=== PATIENT | female | born 1990 ===

== ENCOUNTER 2017-11-30 09:51 | Day surgery (SDC) | payer BC ==
[~2017-11-30 09:51] MED LIST: Buffered Lidocaine 0.9% SYRIN* 5 ML/SYR SYRINGE INTRADERM ONE; Dexamethasone TAB* 4 MG PO ONE; DiMENhydriNATE IV* 50 MG/ML VIAL IV PUSH PRN; Famotidine IV* 10 MG/ML 2 ML (20 mg) IV ONE; Morphine INJ* 2 MG/ML 1 ML SYRINGE (TWO MG - NEW SYRINGE VERSION) IV PRN; Naloxone* 0.4 MG/ML 1 ML VIAL IV PRN; Ondansetron INJ* 2 MG/ML VIAL ONE; PROCHLORPERAZINE INJ 5 MG/ML 2 ML VIAL IV PRN; fentaNYL* 50 MCG/ML 2 ML VIAL (100 MCG VIAL) IV PRN; oxyCODONE/Acetamin 5/325 MG* TAB PO PRN
[2017-11-30] MEDS ORDERED: fentaNYL* 50 MCG/ML 2 ML VIAL (100 MCG VIAL) ONE ×2 (09:53→15:40)
[2017-11-30] MEDS ORDERED: KETAMINE HCL* 50 MG/ML 10 ML VIAL ONE (09:53)
[2017-11-30] MEDS ORDERED: Midazolam* 1 MG/ML 5 ML VIAL (5 MG) ONE (09:54)
[2017-11-30] MEDS ORDERED: Famotidine IV* 10 MG/ML 2 ML (20 mg) ONE (10:05)
[2017-11-30] MEDS ORDERED: Ondansetron ODT TAB* 4 MG ONE (10:05)
[2017-11-30] MEDS ORDERED: ceFAZolin 2 GM PREMIX (*) 2 GM/50 ML BAG IVPB ONE (10:05)
[2017-11-30] MEDS ORDERED: Dexamethasone TAB* 4 MG ONE (10:05)
[2017-11-30] MEDS ORDERED: Ropivacaine (OR use only) 2 MG/ML 10 ML ONE (13:54)
[2017-11-30] MEDS ORDERED: Morphine VIAL* 10 MG/ML 1 ML VIAL ONE (14:19)
[2017-11-30] MEDS ORDERED: Lidocaine 2% PF * 5 ML VIAL ONE (14:19)
[2017-11-30] MEDS ORDERED: Morphine PF AMP (0.5MG/ML)* 5 MG/10 ML AMP ONE (14:19)
[2017-11-30] MEDS ORDERED: Propofol* 10 MG/ML 20 ML BTL IV PUSH ONE (14:19)
[2017-11-30] MEDS ORDERED: Ketorolac INJ* 30 MG/ML 1 ML VIAL ONE (14:19)
[2017-11-30] MEDS ORDERED: DiMENhydriNATE IV* 50 MG/ML VIAL ONE (16:07)
[2017-11-30] MEDS ORDERED: Scopolamine 1.5 mg* PATCH ONE (16:37)
[2017-11-30] MEDS ORDERED: Scopolamine PATCH Remove* 1 NOTE MISC PATCH OFF SCH (17:00)
[2017-11-30] MEDS ORDERED: Scopolamine 1.5 mg* PATCH TRANSDERM SCH (17:00)
[2017-11-30] MEDS ORDERED: oxyCODONE/Acetamin 5/325 MG* TAB ONE (17:21)
[2017-11-30 17:36] VITALS: BP 116/73
--- NOTE | 2017-12-01 02:37 | OP ---
DATE OF OPERATION: 11/30/17 - SDS DATE OF : 86 SURGEON: Jun Ram MD [employer] TAMPER: Cortney Jimenes PA-C PRE-OP DIAGNOSIS: Left ankle instability. POST-OP DIAGNOSIS: Left ankle instability. OPERATIVE PROCEDURE: Left ankle modified anatomic ligament repair. DESCRIPTION OF PROCEDURE: The patient was taken to the operating room where a longitudinal incision was made with the distal fibula. We raised a flap away from the lateral fibula and over the capsule anteriorly. There was a robust thick capsule encountered so we incised along the anterior and distal aspect of the distal fibula reflecting the periosteum posteriorly. We were able to pass 0.62 C wires through the bone passing. #1 Vicryl sutures [id number] through the fibula using Logan-Jone suture to bring the capsule up firmly to the edge of the fibula. We then brought the redundant periosteum down to the remaining portion of the extensive retinaculum. Subcutaneous closure of Vicryl and subcutaneous Monocryl for the skin. A compression dressing and plaster splint applied. [id number]/[facility] #: [id number] MTDD
== END 2017-11-30 17:39 | disposition home or self-care (01) ==
LOC: OR 09:51
PROVIDERS: ATTEND Orthopaedic Surgery
DX: M25.372 Other instability, left ankle (principal)
CPT/HCPCS: 81025; A9270-GY; J0690; J1240; J1885; J2250; J2270; J2704; J2795; J3010; J8540